=== PATIENT | female | born 1955 | race Caucasian/White ===

== ENCOUNTER → 2016-05-18 | Outpatient (CLI) | payer BC ==
[~2016-05-18] VITALS: Ht 137.2 cm; Wt 44.5 kg
[~2016-05-18] MED LIST: BYSTOLIC5 MG PO; CALTRATE PLUS1 EACH PO; CENTRUM SILVER1 EAC3 PO; COLACE100 MG PO; FOLIC ACID1 MG PO; LO-DOSE ASPIRIN81 M1 PO; MELATONIN5 M4 PO; MICROZIDE12.5 M1 PO; PLAVIX75 MG PO; TAGAMET HB200 M2 PO; TYLENOL EXTRA500 MG PO; ULTRAM50 MG PO; XANAX0.25 MG PO; ZYRTEC10 M3 PO
[2016-05-18 13:38] VITALS: BP 183/83
== END | disposition home or self-care (01) ==
LOC: IVINF 05-12 13:00
DX: M81.0 Age-related osteoporosis without current pathological fracture (principal)
CPT/HCPCS: 96365; J3489

== ENCOUNTER → 2017-06-21 | Outpatient (CLI) | payer BC ==
[~2017-06-21] VITALS: Ht 162.6 cm; Wt 44.5 kg
[~2017-06-21] MED LIST changes: +HYDROCHLOROTH12.5 M3 PO
[2017-06-21 13:22] VITALS: BP 151/69
== END | disposition home or self-care (01) ==
LOC: IVINF 06-12 10:00
DX: M81.0 Age-related osteoporosis without current pathological fracture (principal); Z87.19 Personal history of other diseases of the digestive system; Z88.2 Allergy status to sulfonamides; Z88.5 Allergy status to narcotic agent; Z88.6 Allergy status to analgesic agent; Z88.8 Allergy status to other drugs, medicaments and biological substances
CPT/HCPCS: 96365; J3489